=== PATIENT | female | born 1965 | race Caucasian/White ===

== ENCOUNTER 2024-08-15 07:28 | Emergency (ER) | payer OTHER, SELFPAY ==
[2024-08-15 07:28] VITALS: BP 105/69
[2024-08-15 07:30] VITALS: BP 116/79
[2024-08-15] MEDS: ULTRAM 50 MG PO (12:26)
[2024-08-15] MEDS: LIDOCAINE 4% PATCH 1 PATCH TOPICAL (12:26)
[2024-08-15] MEDS: TORADOL 30 MG IM (12:28)
--- NOTE | 2024-08-15 13:39 | ED.GENMED ---
History of Present Illness
General
Chief Complaint: Musculo-Skeletal Complaint
Source: patient and spouse
Exam Limitations: none
Time Seen by Provider: 08/15/24 08:47
Nursing documentation reviewed up to this point in time: agreed with
History of Present Illness
History of Present Illness:
58-year-old female with history as noted presents for evaluation of left thigh/groin pain. Patient reports that she has had chronic pains in the left hip/thigh after a trauma 4 years ago�she says she slipped on some ice getting out of the car and
injured her left hip and thigh and had large hematoma. She says she has had chronic pain in the hip since and follows with [facility] orthopedics and gets regular cortisone shots in the hip. Most recent was on . She says that for the
past few days she has had significant pain in the left medial thigh/groin. She says that although she had her regularly scheduled hip injection, hip has actually not been painful and pain is more in the thigh. She denies any trauma or injury
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 She denies any swelling. She denies any skin changes or bruising/redness. She denies any radicular symptoms or paresthesias�pain is very localized to the medial
groin/thigh. She says pain is much worse with any movement and is at the point where she has difficulty walking which finally prompted her to come to the emergency room. She has tried RICE, Tylenol, ibuprofen without adequate pain control. She
said she is scheduled for an outpatient MRI to work this up in a few days but feels that she cannot make it until then.
Past History
Past History
ED Past Medical History: None
Social History
Tobacco: Non-smoker
Living: with family
Employment: Employed
Review of Systems
Review of Systems
All Other Systems: ROS reviewed and negative except as documented in HPI and ROS
Musculoskeletal: Reports muscle pain; Denies joint pain
Skin: Denies rash
Neurological: Denies weakness or numbness
Phy Exam
Physical Exam
Physical Exam:
General: Well appearing and non-toxic
HEENT: protecting airway
Neck: appears supple
CV: No evidence of cyanosis
Resp: No accessory muscle use
Abd: Non-distended
Extremities: No deformities; on exam of the left lower extremity she has full range of motion of the left hip and knee; she has pain on abduction and adduction of the hip as well as with flexion and to a lesser degree with extension; she has point
tenderness in the medial thigh over the proximal gracilis/abductor; no skin changes; she has strong femoral, popliteal, DP pulses left lower extremity and no edema in the extremity
Neuro: Alert
Psych: Normal affect
Skin: Intact, no bruising, no erythema, warmth, induration in the area of concern, no rash in the area of concern
Scores
Heart Failure Risk
Heart Failure Risk Score: Not Applicable
Heart Score for Chest Pain Patients
STEMI patient?: Not applicable
Withdrawal Assessment of Alcohol
Withdrawal Assessment Completed?: Not applicable
Course
Orders/Labs/Results
Orders:
Orders
08/15/24 11:50
CT Lower Ext W/o Iv Cont Lt Urgent
Comment:
Reason For Exam: severe left thigh pain
Ketorolac [Toradol] 30 mg IM NOW STA
Lidocaine [Lidocaine 4% Patch] 1 patch TOPICAL ONCE ONE
Apply Lidocaine patch(s) to:: left thigh
08/15/24 11:51
Tramadol HCl [Ultram] 50 mg PO NOW STA
Vital Signs
Initial and Last Documented VS:
Initial Vital Signs
Temp Pulse Resp BP Pulse Ox
37.1 C 75 16 116/79 96
08/15/24 07:30 08/15/24 07:30 08/15/24 07:30 08/15/24 07:30 08/15/24 07:30
Last Documented Vital Signs
Temp Pulse Resp BP Pulse Ox
37.1 C 75 16 116/79 96
08/15/24 07:30 08/15/24 07:30 08/15/24 07:30 08/15/24 07:30 08/15/24 07:30
MDM/Problems Addressed
Differential Diagnosis Includes:
Muscle strain/tear, labrum injury, osteoarthritis, radiculopathy; no major trauma goes against femoral fracture, no rash to suggest shingles, no edema and very localized pain over the muscle which goes against diagnosis of DVT, strong pulses and
good distal perfusion goes against arterial insufficiency/claudication; while she did have recent cortisone injection in the left hip her pain is more in the medial thigh, moving hip rather comfortably with no fever to suggest that this is a septic
arthritis
MDM/Problems Addressed:
58-year-old female presents with uncontrolled pain in the medial thigh as described above. Scheduled for outpatient testing but symptoms are poorly controlled which prompted ER visit. Vitals and exam as above. Given severity of pain despite
conservative measures we will check CT of the area to rule out fracture and evaluate for any collection. Will treat symptomatically. Reassess after the above.
*Pulse Oximetry
SaO2: 96
Oxygen Mode of Delivery: Room air
Patient hypoxic: no (96%)
*Critical Care Note
Total Time (30-74mins, 75-104mins- exclusive of procedures): Not Applicable
Data Reviewed
Source: patient, records and spouse
ED Attending Note
-
Portions of this chart may have been created with voice recognition software.� Occasional wrong word or��sound alike� substitutions may have occurred due to the inherent limitations of voice recognition software.
Discharge Plan
Departure
Patient with high blood pressure during this ER visit?: No
Discharge Problem:
Left leg pain
Instructions: Muscle, joint, and bone pain - Discharge instructions
Prescriptions:
New
tramadol 50 mg tablet
50 mg PO TID PRN (Reason: Pain) Qty: 14 0RF
lidocaine [Lidoderm] 5 % adhesive patch,medicated
1 patch topical DAILY Qty: 15 0RF
No Action
triamcinolone acetonide [Nasacort] 10.8 ML aerosol,spray
1 spray inhalation DAILY
levocetirizine [Xyzal] 5 MG tablet
5 mg PO DAILY
Vitamin B
1 tab PO DAILY
Vitamin C:
1 tab PO DAILY
glucosamine-chondroitin 1 EACH capsule
1 ea PO DAILY
Calcium
1,200 mg PO DAILY
Iron
1 tab PO DAILY
Magnesium
1 tab PO DAILY
Rotan's Wort
1 tab PO DAILY
Vitamin D3 (cholecalciferol):
1 tab PO DAILY
Vitamin E :
1 tab PO DAILY
Zinc
1 tab PO DAILY
Referrals:
Clyde Knight MD [Active, Orthopedics] - Call in 1-3 days for appt
Referral Note: [facility]
Mary Torrez CRNP [Family Provider, Family Practice]
Activity Restrictions/Additional Instructions:
Thank you for visiting the Emergency Department at [facility].
1. Please schedule a follow up appointment as directed. Call first thing tomorrow morning to make an appointment.
2. If indicated, please take your medications as instructed and indicated on discharge paperwork.
3. If any of your symptoms do not improve, or persist, or become more severe within 6-12 hours, please return to the emergency department for further care.
4. Please return to the emergency department if you develop a headache, neck pain/stiffness, fever greater than 100.4F, chest pain, shortness of breath, persistent nausea, vomiting, slurred speech, difficulty walking, numbness/tingling, weakness,
signs of infection or any other symptoms that are worrisome to you.
Please call [phone] if you have any questions.
Interventions
Interventions:
*Risk Screen - Suicide Last Done: 08/15/24 07:32
*General Assessment Last Done: 08/15/24 10:55
*Neglect/Abuse Screening Last Done: 08/15/24 07:32
*ED- Fall Risk Assessment Last Done: 08/15/24 10:55
ED-Musculoskeletal Assessment Last Done: 08/15/24 10:54
Discharge Date and Time
Print Language: POLISH
[2024-08-15 16:20] VITALS: BP 106/75
== END 2024-08-15 16:19 | disposition home or self-care (01) ==
LOC: EMR 07:28
PROVIDERS: EMERGENCY PHYSICIAN Emergency Medicine; FAMILY PHYSICIAN Nurse Practitioner Family
DX: M79.652 Pain in left thigh (principal); R10.30 Lower abdominal pain, unspecified; M25.552 Pain in left hip; R26.2 Difficulty in walking, not elsewhere classified; G89.29 Other chronic pain; Z88.5 Allergy status to narcotic agent; Z88.0 Allergy status to penicillin; Z88.2 Allergy status to sulfonamides; Z91.048 Other nonmedicinal substance allergy status
CPT/HCPCS: 99284; 96372; 73700

== ENCOUNTER → 2024-08-30 09:24 | Outpatient (REF) | payer OTHER, SELFPAY ==
[2024-08-30 10:26] LABS: Hematocrit 38.9 % (37.0-47.0); Hemoglobin 13.5 g/dL (12.0-16.0); Mean Corp Hgb Conc. 34.7 g/dL (33.0-37.0); Mean Corpuscular Volume 88.0 fL (81.0-99.0); Nucleated Red Blood Cells % 0 %; Platelet Count 238 10^3/uL (130-400); Red Cell Dist. Width 12.0 % (11.5-14.5)
[2024-08-30 10:51] LABS: Blood Urea Nitrogen 14 mg/dl (7-17); Calcium 10.2 mg/dl (8.4-10.2); Carbon Dioxide 31 mmol/L (22-30); Chloride 102 mmol/L (98-107); Glucose 94 mg/dl (70-99); Potassium 4.2 mmol/L (3.5-5.1); Sodium 139 mmol/L (135-145); eGFR > 60.00
== END ==
LOC: RCS 09:24
PROVIDERS: ATTENDING PHYSICIAN Orthopaedic Surgery; FAMILY PHYSICIAN Nurse Practitioner Family
DX: Z01.818 Encounter for other preprocedural examination (principal)
CPT/HCPCS: 36415; 80048; 85025; 93005